=== PATIENT | female | born 1965 | race Caucasian/White ===

== ENCOUNTER → 2020-10-23 | Outpatient (CLI) ==
[~2020-10-23] MED LIST: CETI10CA2 PO; NEUR600T PO; VITMTA PO
== END ==
LOC: M LABSMTC 09:18
PROVIDERS: ATTEND Anesthesiology
DX: Z01.812 Encounter for preprocedural laboratory examination (principal); Z20.822 Contact with and (suspected) exposure to COVID-19

== ENCOUNTER 2020-10-28 07:55 | Inpatient (IN) | payer BC, OTHER ==
--- NOTE | 2020-10-25 21:07 | HPE ---
HISTORY AND PHYSICAL DATE OF ANTICIPATED ADMISSION: 10/28/2020 HISTORY OF PRESENT ILLNESS: This is a 54-year-old female patient that notes persistent neck pain with the pain radiating to her upper extremities. She elected for surgery for her continued symptoms. She has pain radiating to the right greater than left side. She has tried rest, medications, anti-inflammatories, and gabapentin without improvement. She has elected for surgery for her continued symptoms. She is consented by Dr. Chan for anterior cervical decompression and fusion at C5-6. Medical optimization none. X-rays and MRI consistent with spinal stenosis at C5-6. CURRENT MEDICATIONS: 1. Gabapentin 600 mg b.i.d. 2. Zyrtec 10 mg as needed. 3. Multivitamin. ALLERGIES: No known drug allergies. PAST MEDICAL HISTORY: 1. Cervical spinal stenosis symptomatic. 2. Seasonal allergies. SOCIAL HISTORY: She is a former smoker. Denies alcohol use. FAMILY HISTORY: Arthritis, heart disease, elevated cholesterol. REVIEW OF SYSTEMS: Denies fever or chills. Denies chest pain, shortness of breath, or cough. Denies difficulty breathing. Denies abdominal pain. Denies nausea or vomiting. Denies exposure to COVID-19. Notes persistent neck pain with pain radiating to both upper extremities, right greater than left. PHYSICAL EXAMINATION: Today reveals a well-nourished and well-developed female patient. She ambulates with a normal gait. Her gait is not wide based. Her mood and affect are appropriate for the situation. Clonus is negative. Spurling is positive. Skin around the neck is intact. No erythema, edema, or ecchymosis. Deep tendon reflexes are trace at the biceps, 1 at the brachial radialis, and 1 at the triceps. Deep tendon reflexes are 1 at the knees and absent at the ankles. The neck is supple without adenopathy or JVD. Lungs are clear to auscultation without rales or wheeze. Heart regular rate and rhythm. Abdomen with bowel sounds present. VITAL SIGNS: Height 5 feet 1 inch, weight 157 pounds; blood pressure 116/74, pulse 66, respirations 18. LABORATORY DATA: None. MEDICAL CLEARANCE: None. IMPRESSION: Symptomatic cervical spinal stenosis at C5-6 with upper extremity radiculopathy, right greater than left. PLAN: She has been consented by Dr. Chan for an anterior cervical decompression and fusion at C5-6. We reviewed her pre- and postoperative instructions. We went over the importance of n.p.o. after midnight, no NSAIDs five days prior to surgery, and she needs to call the hospital one day prior to find her time of arrival. We went over the importance of being on time for the arrival time. We discussed her needs to be self-quarantined now that she has had her COVID testing done. She understands the importance of n.p.o. after midnight and what n.p.o. after midnight means. All of her questions were answered.
[~2020-10-28] VITALS: Ht 154.9 cm; Wt 73.9 kg
[~2020-10-28 07:55] MED LIST changes: +CelecoXIB (CeleBREX) 100 MG CAP PO ONE; +LR 1,000 ML IV ONE; +PERCOCET 5MG/325MG TAB PO ONE; +ceFAZolin SOD 2 GM in IV 1 EA IV ONE
[2020-10-28] MEDS ORDERED: propofoL 200 MG/20 ML VIAL As Ordered ONE (08:31)
[2020-10-28] MEDS ORDERED: ONDANSETRON 4MG/2ML VIAL As Ordered ONE ×2 (08:31→13:19)
[2020-10-28] MEDS ORDERED: SUGAMMADEX SODIUM 500 MG/5 ML VIAL (BRIDION) As Ordered ONE (08:31)
[2020-10-28] MEDS ORDERED: fentaNYL 100 MCG/2 ML INJECTION (J3010) As Ordered ONE ×2 (08:31→13:03)
[2020-10-28] MEDS ORDERED: ROCURONIUM BROMIDE 50 MG/5 ML VIAL As Ordered ONE (08:31)
[2020-10-28] MEDS ORDERED: LIDOCAINE 2% 100MG/5ML SDV (FOR ANES.) As Ordered ONE (08:31)
[2020-10-28] MEDS ORDERED: dexameTHASONE 4 MG/ML 1ML VIAL (J1100 PER 1MG) As Ordered ONE (08:31)
[2020-10-28] MEDS ORDERED: HYDROmorphone HCL 2 MG/ML 1ML VIAL (J1170) As Ordered ONE (08:31)
[2020-10-28] MEDS ORDERED: MIDAZOLAM INJ 2MG/2ML VIAL (J2250 PER 1MG) As Ordered ONE (08:31)
[2020-10-28] MEDS ORDERED: PHENYLEPHRINE 10MG/ML 1ML VIAL (J2370 PER 1) As Ordered ONE (08:47)
[2020-10-28] MEDS ORDERED: THROMBIN SOLN 20,000 UNITS KIT As Ordered ONE (09:35)
[2020-10-28] MEDS ORDERED: BACITRACIN PWD 50,000 UNITS VIAL As Ordered ONE (09:35)
[2020-10-28] MEDS ORDERED: methylPREDNISolone 500 MG VIAL (J2930) As Ordered ONE (09:35)
[2020-10-28] MEDS ORDERED: LIDOCAINE W/EPINEPHRINE 1% 20ML VIAL As Ordered ONE (09:35)
[2020-10-28] MEDS ORDERED: SCOPOLAMINE 1MG TRANSDERMAL PATCH As Ordered ONE (10:28)
[2020-10-28] MEDS ORDERED: SCOPOLAMINE 1MG TRANSDERMAL PATCH TOP ONE (11:00)
[2020-10-28] MEDS ORDERED: GLYCOPYRROLATE INJ 0.2 MG/ML 2 ML VIAL As Ordered ONE (11:12)
--- NOTE | 2020-10-28 12:40 | REP ---
INDICATION: RIGHT PARTIAL CORPECTOMY C5/6,C6/7, DECOMPRESS SPINAL CORD. COMPARISON: None. TECHNIQUE: Two portably obtained cross-table lateral views were obtained during the page shins OR procedure. These are time stamped 11:49 a.m. and 12:28 p.m.. FINDINGS: The 11:49 a.m. cross-table lateral view of the cervical spine demonstrates a operative probe at the anterior margin of the C5-6 disc space which is narrowed. Ida tracheal catheter is noted. The 12:28 p.m. radiograph demonstrates ventral discectomy and fusion plate with bone graft plug in place at the C5-6 disc level. IMPRESSION: Procedural imaging as above. <Electronically signed by Shaan Haines > 10/28/20 1511
[2020-10-28] MEDS ORDERED: oxyCODONE 5MG TAB As Ordered ONE (13:04)
[2020-10-28] MEDS ORDERED: HYDROMORPHONE HCL 0.5 MG/ 0.5 ML SYRINGE (J1170 PER 1) As Ordered ONE ×2 (13:14→13:24)
[2020-10-28] MEDS: HYDROMORPHONE HCL 0.5 MG/ 0.5 ML SYRINGE (J1170 PER 1) IV PRN ×4 (13:15→13:40)
[2020-10-28] MEDS ORDERED: fentaNYL 100 MCG/2 ML INJECTION (J3010) IV PRN (13:45)
[2020-10-28] MEDS ORDERED: ONDANSETRON 4MG/2ML VIAL IV PRN (13:45)
[2020-10-28] MEDS ORDERED: oxyCODONE 5MG TAB PO PRN (13:45)
[2020-10-28] MEDS ORDERED: LR 1,000 ML IV SCH (13:45)
[2020-10-28] MEDS ORDERED: PERCOCET 5MG/325MG TAB PO PRN ×2 (14:15)
[2020-10-28] MEDS ORDERED: D5W/LR 1,000 ML IV SCH (14:15)
[2020-10-28] MEDS ORDERED: ACETAMINOPHEN TAB 650MG DOSE (2X325MG) PO PRN (14:30)
[2020-10-28] MEDS ORDERED: MORPHINE 4 MG/ML 1ML VIAL/SYRINGE (J2270) IV PRN (14:30)
[2020-10-28] MEDS ORDERED: PROMETHAZINE INJ 25 MG/ML VIAL (J2550) IV PRN (14:30)
[2020-10-28 15:00] VITALS: BP 129/80
[2020-10-28 15:30] VITALS: BP 113/65
[2020-10-28] MEDS ORDERED: ceFAZolin SOD 2 GM in IV 1 EA IV SCH (16:00)
[2020-10-28 16:30] VITALS: BP 100/53
[2020-10-28] MEDS: ceFAZolin SOD 2 GM in IV 1 EA IV SCH (16:55)
[2020-10-28 17:30] VITALS: BP 117/66
[2020-10-28 18:30] VITALS: BP 108/64
[2020-10-28 20:00] VITALS: BP 126/73
[2020-10-28] MEDS: GABAPENTIN 300 MG CAP PO SCH (20:05)
--- NOTE | 2020-10-28 20:23 | ECGEPIP ---
[facility] Test Date: 2020-10-28 Pat Name: FRANCIE WADE Department: Room: [place] [address] Gender: Female Facilities Manager: jigar : 1965 Requested By: DONNELL Pa Order Number: [id number] Reading MD: Jc Stewart Measurements Intervals [place] Rate: 58 P: 62 VA: 170 QRS: 7 QRSD: 82 T: 42 QT: 444 QTc: 435 Interpretive Statements Sinus bradycardia Nonspecific T wave abnormality Comparison tracing not on file Electronically Signed on 10-28-2020 20:23:05 EST by Jc Stewart
[2020-10-29 01:13] VITALS: BP 125/74
[2020-10-29] MEDS: ceFAZolin SOD 2 GM in IV 1 EA IV SCH (01:45)
[2020-10-29 05:54] VITALS: BP 125/73
[2020-10-29] MEDS ORDERED: PERC5TAB12 PO (06:02)
[2020-10-29] MEDS: GABAPENTIN 300 MG CAP PO SCH (08:45)
[2020-10-29] MEDS ORDERED: METAMUCIL (PSYLLIUM) PACKET PO SCH (09:00)
--- NOTE | 2020-10-29 20:57 | RO ---
OPERATIVE NOTE DATE OF OPERATION: 10/28/2020 PREOPERATIVE DIAGNOSIS: Cervical radiculopathy and cervical degenerative change at C5/6. POSTOPERATIVE DIAGNOSIS: Cervical radiculopathy and cervical degenerative change at C5/6. PROCEDURE PERFORMED: Anterior cervical diskectomy and fusion, C5/6. Application of anterior cervical instrumentation, C5/C6. Use of structural Allograft for spine surgery C5/6. SURGEON: Hamlet Chan MD MICA BUILDER: Jamil Ramos, FRANTZ ANESTHESIA: Dr. Bacon general. ESTIMATED BLOOD LOSS: Less than 30 ml. COMPLICATIONS: No complications. COMPONENTS USED: Cranford plate 12 mm and 14 mm screws, VG2 structural graft size 4 x 6. INDICATIONS: Paresthesias radiating to both upper extremities. Disk degeneration of C5/6, the patient elects for operative intervention. Consent reviewed in detail with the patient including ji discussion of pathology involved, the procedure proposed, alternatives including doing nothing and risks including, but not limited to pain, failure, hoarseness, swallowing trouble, need for more surgery and infection and bleeding, blood loss and other complications. The patient agrees to proceed with surgery. OPERATIVE COURSE: Identified in the holding area, site and side verified, brought to the operating room, anesthesia was administered. She was positioned in the usual fashion for exposure of the cervical spine for ACDF. Next, it was right-sided approach. Time-out was accomplished. Head halter traction 7 pounds had been applied. Once she was thoroughly prepped and draped in the usual fashion, incision was outlined with a marking pen, infiltrated with 1% lidocaine, made with a 10 blade knife, developed down through skin and subcutaneous tissues, the platysma. The platysma elevated, divided using bipolar cautery and tenotomy scissors. Sternocleidomastoid identified. Omohyoid identified. It was elevated and divided. The carotid sheath identified and protected. Dissection continued medial to carotid sheath. Prevertebral fascia identified, elevated in several layers. Mr. Ramos utilized retractors to assist with exposure. C5/6 anterior osteophyte identified. Bayonet spinal needle placed at C5/6. Cross table lateral x-ray was obtained verifying level. Distractor placed across C5/6. Shadow-Line retractor applied. Annulus was opened with 11 blade. Disc material was removed using pituitaries. Curettes were utilized to remove cartilage end-plate. Oval bar was utilized to contour end-plates and remove uncinate processes. Posterior longitudinal ligament was elevated with curettes and removed using Kerrisons, exposing the thecal sac. Uncinate process was further divided using #2 Kerrisons for nerve decompression. Rasps were utilized, 4 x 6 would be appropriate size for this patient. Next, sound was utilized 4 x 6. Next, VG2 graft was obtained, implanted and tamped into place. Next, Mr. Ramos assists with exposure, removed the distractor, removed head halter traction, removed traction pins, plugged holes with wax, contour the anterior vertebral bodies with oval bur, applied 12 mm plate, secured it using 14 mm screws, which were drilled, placed and locking device engaged. Irrigation had been accomplished both prior to graft placement and after plate placement. Next, all retractors were removed. Cross table laterals obtained, verifying placement. Wound was closed with interrupted stitch, Dermabond on skin. [place] disc collar applied. The patient extubated, moved to recovery room in good condition. Vocalizing well and moving all four extremities. Mr. Ramos was present and participated in the entirety of the case in capacity of retail loan originator assistant. For further details, please refer to the medical record.
--- NOTE | 2020-10-31 11:45 | DSES ---
DISCHARGE SUMMARY DATE OF ADMISSION: 10/28/2020 DATE OF DISCHARGE: 10/29/2020 ATTENDING PHYSICIAN: CHRIS NIETO MD ADMITTING DIAGNOSIS: Symptomatic cervical spinal stenosis at C5-C6 with right greater than left upper extremity radiculopathy. OTHER DIAGNOSES: 1. Seasonal allergies. DISCHARGE DIAGNOSIS: 1. Symptomatic cervical spinal stenosis at C5-6 with right greater than left upper extremity radiculopathy. HISTORY: The patient is a 54-year-old female that had persistent neck pain radiating into her upper extremities. She failed to improve with conservative measures. She consented for an anterior cervical decompression and fusion procedure at C5-[address] Nieto for her continued symptoms. OPERATION PERFORMED: Anterior cervical discectomy and fusion at C5-6. Application of anterior cervical instrumentation at C5-C6. Use of structural allograft for spine surgery at C5-6. HOSPITAL COURSE: The patient underwent an anterior cervical decompression and fusion procedure at C5-6 under general anesthesia. Surgery was uneventful and her hospital course was without complication. She was discharged on oral pain medications and will resume her preoperative medications and diet. She will use her cervical collar and thromboembolic deterrent stockings as directed. She will follow-up in our office in 7-10 days for reevaluation. She is encouraged to contact our office sooner if there is any increase in pain, redness, drainage, radiating pain, saddle anesthesia, problems with bowel or bladder control issues, problems with gait, fevers greater than 101 degrees or any other concerns. Please see medical records for additional details.
== END 2020-10-29 11:20 | disposition home or self-care (01) | DRG 321 ==
LOC: M OR 07:55 → M MS5PR 14:52
PROVIDERS: ADMIT Orthopaedic Surgery; ATTEND Orthopaedic Surgery
PROC: 0RB30ZZ Excision of Cervical Vertebral Disc, Open Approach (ICD-10-PCS; 2020-10-28)
PROC: 0RG20K0 Fusion of 2 or more Cervical Vertebral Joints with Nonautologous Tissue Substitute, Anterior Approach, Anterior Column, Open Approach (ICD-10-PCS; principal; 2020-10-28 10:00)
DX: M50.10 Cervical disc disorder with radiculopathy, unspecified cervical region (principal); M48.02 Spinal stenosis, cervical region; J30.2 Other seasonal allergic rhinitis; Z87.891 Personal history of nicotine dependence; Z79.899 Other long term (current) drug therapy

== ENCOUNTER → 2022-10-08 | Outpatient (CLI) | payer BC, OTHER ==
[~2022-10-08] MED LIST changes: -CelecoXIB (CeleBREX) 100 MG CAP PO ONE; -LR 1,000 ML IV ONE; +PERC5TAB12 PO; -PERCOCET 5MG/325MG TAB PO ONE; -ceFAZolin SOD 2 GM in IV 1 EA IV ONE
[2022-10-08 15:06] LABS: URIC ACID 4.9 MG/DL (3.1-7.8)
[2022-10-08 15:09] LABS: C REACTIVE PROTEIN QUANTITATIV < 0.40 MG/DL (<1.0)
[2022-10-08 15:10] LABS: RHEUMATOID FACTOR QUANT 7.2 IU/ML (<14)
== END ==
LOC: M PLALAB 09:04
PROVIDERS: ATTEND Physician Assistant
DX: Z98.1 Arthrodesis status (principal)